=== PATIENT | male | born 1990 | race African-American/Black ===

== ENCOUNTER 2023-04-21 22:06 | Emergency (ER) | payer MEDICAID ==
[~2023-04-21] VITALS: Ht 164.5 cm; Wt 73.0 kg
[2023-04-22] MEDS ORDERED: NEOM28.43 TP (01:06)
[2023-04-22] MEDS ORDERED: HYDR453.4 TP (01:06)
[2023-04-22] MEDS ORDERED: CETI-338 PO (01:07)
[2023-04-22 01:34] VITALS: BP 128/84
== END 2023-04-22 01:35 | disposition home or self-care (01) ==
LOC: ER 22:06
DX: S30.860A Insect bite (nonvenomous) of lower back and pelvis, initial encounter (principal); W57.XXXA Bitten or stung by nonvenomous insect and other nonvenomous arthropods, initial encounter; Y93.89 Activity, other specified; Y92.89 Other specified places as the place of occurrence of the external cause; Y99.8 Other external cause status
CPT/HCPCS: 99282